=== PATIENT | male | born 1975 | race American Indian/Alaskan Native ===

== ENCOUNTER 2024-10-07 13:26 | Emergency (ER) | payer OTHER ==
[~2024-10-07] VITALS: Ht 185.4 cm; Wt 93.1 kg
[2024-10-07 18:24] LABS: BASOPHILS 0.4 % (0-2); EOSINOPHILS 0.9 % (0-6); HEMATOCRIT 43.3 % (35.0-50.0); HEMOGLOBIN 15.5 g/dL (12.0-18.0); LYMPHOCYTES 10.9 % (24-44); MCH 35.5 (27-36); MCHC 35.8 g/dl (30-36); MCV 99.1 fl (81-99); MONOCYTES 12.7 % (0-12); NEUTROPHILS 75.1 % (39-80); PLATELET COUNT 135 K/uL (140-440); RBC 4.37 M/ul (4.3-5.7); RDW 13.6 (10.5-15.0)
[2024-10-07 18:47] LABS: ALCOHOL, MEDICAL <3 ng/dL (<3); ALKALINE PHOSPHATASE 74 U/L (46-116); ALT (SGPT) 62 U/L (14-59); ANION GAP 10.8 (7-21); AST (SGOT) 46 U/L (15-37); BILIRUBIN, TOTAL 1.1 mg/dL (0.2-1.0); CALCIUM 9.4 mg/dL (8.5-10.1); CARBON DIOXIDE 29 mmol/L (21-32); CHLORIDE 98 mmol/L (98-107); CREATININE, SERUM 0.74 mg/dL (0.70-1.30); GLOMERULAR FILTRATION RATE,EST 110 mL/min (>60); POTASSIUM 2.8 mmol/L (3.5-5.1); UREA NITROGEN 6 mg/dL (7-18)
[2024-10-07] MEDS ORDERED: OLANZapine 10 MG TABDIS PO ONE (19:45)
[2024-10-07 19:58] VITALS: BP 143/99
== END 2024-10-07 20:07 | disposition left against medical advice (07) ==
LOC: ED 13:26
PROVIDERS: Emergency Medicine
DX: F22 Delusional disorders (principal); Z53.29 Procedure and treatment not carried out because of patient's decision for other reasons
CPT/HCPCS: 36415; 70450; 80053; 80307; 84443; 85025; 99285-25; A9270; G0480